=== PATIENT | female | born 1930 | race Caucasian/White ===

== ENCOUNTER → 2017-07-21 | Outpatient (CLI) | payer OTHER | LOC: RAD 11:00 | DX: M47.894 Other spondylosis, thoracic region (principal); M47.896 Other spondylosis, lumbar region; M47.892 Other spondylosis, cervical region; M25.512 Pain in left shoulder; M25.511 Pain in right shoulder ==

== ENCOUNTER → 2017-07-30 | Outpatient (CLI) | payer OTHER ==
[~2017-07-30] VITALS: Ht 160 cm; Wt 48.1 kg
[~2017-07-30] MED LIST: CARVEDILOL12.5 MG PO; CHILDREN'S ASPI81 M1 PO; COREG25 MG PO; COUMADIN 1MG TAB1 M1 PO; COUMADIN 2 MG TA2 M1 PO; HYDROCHLOROTH12.5 M2 PO; HYDROCODONE-AP1 EAC6; NEXIUM40 MG PO; OCUVITE TABLET1 EAC1 PO; SORINE 80 MG TA80 M1 PO; SORINE 80 MG TA80 MG PO; SYNTHROID75 MCG PO; TRAMADOL 50 MG50 MG PO; VITAMIN B-12500 MCG BUCCAL; VITAMIN D2000 UNIT PO; XALATAN2.5 ML
[2017-07-30 13:15] VITALS: BP 175/60
[2017-07-30 14:50] VITALS: BP 162/45
== END ==
LOC: OPONC 06:17
DX: E61.1 Iron deficiency (principal)
CPT/HCPCS: 95000; 95113

== ENCOUNTER → 2017-08-03 | Outpatient (CLI) | payer OTHER ==
[2017-08-03 11:52] VITALS: BP 180/66
[2017-08-03 12:31] VITALS: BP 168/54
== END ==
LOC: OPONC 00:42
DX: E61.1 Iron deficiency (principal)
CPT/HCPCS: 95000

== ENCOUNTER → 2017-08-05 | Outpatient (CLI) | payer OTHER ==
[2017-08-05 10:40] VITALS: BP 181/61
[2017-08-05 11:40] VITALS: BP 183/59
== END ==
LOC: OPONC
DX: E61.1 Iron deficiency (principal)
CPT/HCPCS: 95000

== ENCOUNTER → 2017-08-10 | Outpatient (CLI) | payer OTHER ==
[2017-08-10 12:25] VITALS: BP 198/67
[2017-08-10 12:40] VITALS: BP 190/55
[2017-08-10 13:25] VITALS: BP 197/49
== END ==
LOC: OPONC 00:24
DX: E61.1 Iron deficiency (principal)
CPT/HCPCS: 95000

== ENCOUNTER → 2017-08-12 | Outpatient (CLI) | payer OTHER ==
[2017-08-12 12:20] VITALS: BP 178/60
[2017-08-12 13:20] VITALS: BP 190/70
== END ==
LOC: OPONC 00:39
DX: E61.1 Iron deficiency (principal)
CPT/HCPCS: 95000

== ENCOUNTER → 2017-08-18 | Outpatient (CLI) | payer OTHER ==
[~2017-08-18] VITALS: Ht 160 cm; Wt 48.1 kg
[~2017-08-18] MED LIST changes: +COREG CR40 MG PO; -HYDROCODONE-AP1 EAC6; +HYDROCODONE-AP1 EAC6 PO; +KEFLEX500 MG PO
--- NOTE | ~2017-08-18 | P ---
[facility] [place] [address] PROCEDURE REPORT Name: YUDELKA SWARTZ [id number] Admission: 08/18/17 Attend Phys: Ernesto Vega Discharge: Date of : [birth year] Report #: [id number] THIS REPORT FOR: //name// CC: Ernesto Riddle MD DATE OF SERVICE: 08/18/2017 PROCEDURE PERFORMED: Colonoscopy with polypectomies. HISTORY OF PRESENT ILLNESS: The patient is an 87-year-old female with a history of anemia. EGD was just performed, which was essentially negative. Plan is for colonoscopy. DESCRIPTION OF PROCEDURE: The risks and benefits of the procedure were explained to the patient, those risks including but not limited to bleeding, perforation, the risk of sedation. She understood these risks and gave informed consent. Sedation was given using propofol per anesthesia. Next, a digital rectal exam was initially performed, which was normal. Next, using a standard Fujinon colonoscope, the scope was placed in the patient's anus and advanced under direct vision to the cecum. The overall prep was excellent. The cecum and ileocecal valve were normal in appearance. In the ascending colon, there was an 8 mm sessile polyp. This was removed by snare cautery. A few scattered diverticula were also noted in the ascending colon, otherwise normal. In the transverse colon, a 6 mm sessile polyp was also removed by snare cautery. A few scattered diverticula were noted in the descending colon and sigmoid colon. Also, in the sigmoid colon was an area of mild erythema and colitis. There was no active bleeding. Biopsies were obtained. The rectal mucosa was normal. On retroflexion, no abnormalities were noted. The scope was then withdrawn and the procedure terminated. The patient tolerated the procedure well. IMPRESSION: 1. Two colonic polyps. 2. Scattered diverticulosis. 3. Small area of colitis in the sigmoid colon, no bleeding. 4. Otherwise, normal colonoscopy. RECOMMENDATIONS: 1. Await biopsy results. 2. Consider Hemoccult testing stools times 3. [facility] [address] [place] [address] PROCEDURE REPORT Name: YUDELKA SWARTZ Room #: REG [facility] Kevin#: [id number] Admission: 08/18/17 Attend Phys: Ernesto Vega Discharge: Date of : [birth year]/03[birth year] Report #: [id number] Thank you for allowing me to participate in her care. <ELECTRONICALLY SIGNED> By: Ernesto Phillips MD 08/20/17 0935 1152 1242 Ernesto Phillips MD /nt
--- NOTE | ~2017-08-18 | EKG ---
[address] [place] [address] ELECTROCARDIOGRAM REPORT Name: YUDELKA SWARTZ [id number] Admission: 08/18/17 Attend Phys: Ernesto Vega Discharge: Date of : [birth year]/03/[birth year] Report #: [id number] THIS REPORT FOR: //name// [facility] Test Date: 2017-08-18 Test Time: 09:07:05 Pat Name: YUDELKA SWARTZ Department: Room: Gender: F General Duty Nurse: DANG : 1930 Requested By: Ernesto Phillips Order Number: [id number] MD: Willam Adams Measurements Intervals [place] Rate: 59 P: 0 [place]: 159 QRS: 88 QRSD: 91 T: 33 QT: 523 QTc: 519 Interpretive Statements Sinus rhythm Borderline right axis deviation Consider left ventricular hypertrophy Compared to ECG 06/05/1993 12:52:00 Sinus tachycardia no longer present Poor R-wave progression no longer present ST (T wave) deviation no longer present Electronically Signed On 08-18-2017 11:19:07 CDT by Willam Adams [email or web address] <ELECTRONICALLY SIGNED> By: Willam Adams MD 08/18/17 1119 0907 0907 Willam Adams MD /EPI
--- NOTE | ~2017-08-18 | P ---
[facility] [place] [address] PROCEDURE REPORT Name: YUDELKA SWARTZ [facility] [id number] Admission: 08/18/17 Attend Phys: Ernesto Vega Discharge: Date of : [birth year]/03/[birth year] Report #: [id number] THIS REPORT FOR: //name// CC: Ernesto Riddle MD DATE OF SERVICE: 08/18/2017 PROCEDURE PERFORMED: Upper endoscopy with biopsies. HISTORY OF PRESENT ILLNESS: The patient is an 87-year-old female with a history of anemia. She denies any melanotic stools or bright red blood per rectum. Last colonoscopy was in 2008. She has had weight loss of about 10 pounds over the last 2 years. She does report some nausea at times. She denies any dysphagia. No family history of colon cancer. She is on Coumadin for history of valve replacement. This has been held. Her INR today is 1.1. Plan is for EGD and colonoscopy. PROCEDURE: The risks and benefits of the procedure were explained to the patient, those risks including, but not limited to bleeding, perforation, and the risk of sedation. She understood these risks and gave informed consent. Sedation was given using propofol per anesthesia. Next, using a standard Walk-in App[facility]ment Schedulerinon upper endoscope, the scope was placed in the patient's mouth and advanced under direct vision through the esophagus, stomach and into the second portion of the duodenum. The esophagus was normal throughout. The GE junction was normal. Overall, the gastric mucosa was normal. No ulcers or erosions were noted. The pylorus was normal and patent. The duodenal bulb and first portion were normal. A duodenal diverticulum was noted in the second portion, otherwise normal. Biopsies were obtained to rule out the possibility of celiac sprue because of her history of anemia. The scope was then withdrawn and the procedure terminated. The patient tolerated the procedure well. IMPRESSION: 1. Duodenal diverticulum. 2. Otherwise, normal upper endoscopy. RECOMMENDATIONS: 1. Await biopsy results. 2. We will proceed with colonoscopy next today. [address] [address] PROCEDURE REPORT Name: YUDELKA SWARTZ Room #: REG JASMINE Brown#: [id number] Admission: 08/18/17 Attend Phys: Ernesto Vega Discharge: Date of : [birth year]/03/[birth year] Report #: [id number] Thank you for allowing me to participate in her care. <ELECTRONICALLY SIGNED> By: Ernesto Phillips MD 08/20/17 0935 1149 1224 Ernesto Phillips MD /nt
--- NOTE | ~2017-08-18 | S ---
[facility] [place] [address] SURGICAL PATH RPT PROCEDURE Name: LENORE SWARTZ Room #: REG JASMINE An.#: [id number] Admission: 08/18/17 Date of : [birth year] Discharge: Report #: [id number] Path Case #: [id number] PATHOLOGY REPORT COLLECTION DATE: 08/18/2017 RECEIVED DATE: 08/18/2017 SUBMITTING PHYS: Dr. Ernesto Phillips OTHER PHYS: Dr. Shawn Riddle SPECIMEN(S) RECEIVED: A.Duodenum R/O sprue B.Polyp at ascending colon C.Polyp at transverse colon D.Bx colitis * * * * * * * * * * * * FINAL DIAGNOSIS: A. Small bowel mucosa, duodenum to rule out sprue, endoscopic biopsy: - No diagnostic abnormalities present. B. Polyp, at ascending colon, endoscopic biopsy: - Tubular adenoma. - Negative for high grade dysplasia. C. Polyp, at transverse colon, endoscopic biopsy: - Tubular adenoma. - Negative for high grade dysplasia. D. 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 - Negative for active cryptitis. - Negative for dysplasia or malignancy. COMMENT: Part D: Examination shows fibrotic lamina propria comprised of lymphocytes and plasma cells. The crypts show architectural abnormalities in scattered rare foci. There is no active cryptitis, crypt abscess formation, basal plasmacytosis or surface epithelial inflammation/ulceration identified in any of the biopsy tissues. There are no granulomata, viral inclusions, or parasitic organisms present. Thrombi are not identified within the lamina propria vessels. Overall findings may be suggestive of chronic colitis/resolving ulcerative colitis, chronic diverticulitis, or partially sampled ischemic colitis. Clinical correlation is suggested. (IUV:rlm; 08/19/2017) PATHOLOGIST: Shonna Liriano M.D. REPORT ELECTRONICALLY SIGNED BY: [place] [address] SURGICAL PATH RPT PROCEDURE Name: LENORE SWARTZ Room #: REG [facility]#: [id number] Admission: 08/18/17 Date of : [birth year] Discharge: Report #: [id number] Path Case #: [id number] DATE/TIME: 08/19/2017 15:56 * * * * * * * * * * * * GROSS PATHOLOGY: A. Received in formalin labeled "Lenorekatja Swartz, BX duodenal," are 3 segments of alexis soft tissue measuring 1.2 x 0.3 x 0.4 cm in aggregate dimensions and ranging from 0.4 to 0.4 cm in maximum dimension. The specimen is submitted entirely in cassette A1. B. Received in formalin labeled "Lenore Swartz, polyp at ascending colon," are 4 segments of alexis soft tissue measuring 1.4 x 0.8 x 0.5 cm in aggregate dimensions and ranging from 0.5 to 0.6 cm in maximum dimension. The specimen is submitted entirely in cassette B1. C. Received in formalin labeled "Lenore Keerthi, polyp at transverse colon," is a segment of alexis soft tissue measuring 0.5 cm in maximum dimension. The specimen is submitted entirely in cassette C1. D. Received in formalin labeled "Lenore Swartz, BX colitis," are 3 segments of alexis soft tissue measuring 0.6 x 0.1 x 0.1 cm in aggregate dimensions and ranging from 0.2 to 0.2 cm in maximum dimension. The specimen is submitted entirely in cassette D1. (TSD; 08/18/2017) CLINICAL HISTORY: Pre-OP DX: Hx anemia Post-OP DX: Anemia, colon polyps INITIAL CPT CODE(S): A; 77721 B; 24106 C; 94130 D; 81246 Professional services performed by [facility] at [facility] [address], [place] [address] Technical services performed by [facility] at [address] [place] [address], [address], [place] [address]. [facility] [address] [place] [address] PHONE: [phone] DIRECTOR: Manish Steele M.D. * * * END OF REPORT * * *
[2017-08-18 09:55] LABS: INR 1.1; PROTIME 11.1 Seconds (9.3-11.4)
== END | disposition home or self-care (01) ==
LOC: GI 01:21
PROVIDERS: Specialist
DX: D12.2 Benign neoplasm of ascending colon (principal); D12.3 Benign neoplasm of transverse colon; K52.9 Noninfective gastroenteritis and colitis, unspecified; K57.10 Diverticulosis of small intestine without perforation or abscess without bleeding; I10 Essential (primary) hypertension; K21.9 Gastro-esophageal reflux disease without esophagitis; E03.9 Hypothyroidism, unspecified; Z90.710 Acquired absence of both cervix and uterus; Z95.2 Presence of prosthetic heart valve; Z98.41 Cataract extraction status, right eye; Z98.42 Cataract extraction status, left eye; Z98.890 Other specified postprocedural states; Z91.041 Radiographic dye allergy status; Z88.4 Allergy status to anesthetic agent; Z79.82 Long term (current) use of aspirin; Z79.899 Other long term (current) drug therapy; Z79.01 Long term (current) use of anticoagulants
CPT/HCPCS: 62110

== ENCOUNTER → 2018-12-23 | Outpatient (CLI) | payer OTHER | LOC: RAD 13:50 | DX: N60.01 Solitary cyst of right breast (principal); N60.02 Solitary cyst of left breast ==

== ENCOUNTER → 2018-12-27 | Outpatient (CLI) | payer OTHER ==
[2018-12-27 13:16] LABS: CREATININE 1.3 mg/dL (0.6-1.0)
[2018-12-27 13:37] LABS: ALBUMIN 3.5 g/dL (3.4-5.0); CALCIUM 10.3 mg/dL (8.5-10.1); CREATININE 1.3 mg/dL (0.6-1.0); POTASSIUM 4.3 mmol/L (3.5-5.1)
[2018-12-27 13:49] LABS: INR 1.1
[2018-12-27 13:50] LABS: TOTAL BILIRUBIN 0.4 mg/dL (<0.1-1.0); TOTAL PROTEIN 6.7 g/dL (6.4-8.2)
--- NOTE | 2019-01-02 16:07 | PATH ---
[facility] [address] [place] [address] PATHOLOGY RPT PROCEDURE Name: LENORE SWARTZ Annel Room #: REG JASMINE An.#: [id number] ������������������ Admission: 12/27/18 ������������������ Date of : [birth year]/03/[birth year] Discharge: Report #: [id number] Path Case #: [id number] [facility] Accession Number: [id number] . 01 Material submitted: . LEFT BREAST MASS . 01 Clinical history: . Left breast mass . 02 Diagnosis: Breast, left breast mass, needle core biopsy: - INVASIVE MODERATELY DIFFERENTIATED DUCTAL ADENOCARCINOMA, MACK GRADE II/III MEASURING 1.6 CM IN A SINGLE CORE IN CONTIGUOUS LENGTH. 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 02 Comment: Specimen type: Left breast mass Tumor site: Not specified Tumor quantitation: 1.6 cm Histologic type: Invasive ductal carcinoma Histologic grade: Mack grade II Tubules, nuclei and mitoses: 3, 2 and 2 respectively LVSI: Not identified Microcalcifications: Not identified Markers: ER, DE, HER2/MARLEY, and Ki67 Block: A1 . Co-review: Dr. Huong Mullen. . Findings are telephoned to Miss Selina Rain at approximately 1:20 p.m. on 12/28/18. . 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 02 Addendum: . Special studies report received from [facility], [address] [place] [address], [address], [place], [address], on case [id number], labeled with their number [id number], dated 12/30/2018. . Breast/Prognostic Marker Analysis . Specimen Site: Lt Breast, mass, Breast cancer. Specimen ID #: [id number] . ER (Estrogen Receptor) [place] [address] PATHOLOGY RPT PROCEDURE Name: LENORE SWARTZ [facility] [id number] ������������������ Admission: 12/27/18 ������������������ Date of : [birth year]03/[birth year] Discharge: Report #: [id number] Path Case #: [id number] Absent/Negative Percent: 0.00 Analysis: Manual . DE (Progesterone Receptor) Absent/Negative Percent: 0.00 Analysis: Manual . HER2 Equivocal Score: 2+ Analysis: Manual . Ki-67 High Proliferation Percent: 25.00% Analysis: Manual . Time to Fixation (Cold Ischemic Time): Immediate Duration of Fixation: Not Provided Type of Fixative: 10% Neutral Buffered Formalin . at [employer]. Chano Murphy MD Surgical Pathologist . Methodology The HER2 Receptor protein expression is analyzed using the [employer] HER2 rabbit monoclonal antibody (clone [id number]). This assay is used for diagnostic determination of the HER2 protein over-expression in paraffin embedded, formalin fixed breast cancer tissue on the [employer]. The specimen is processed using a polymer detection system. The membrane staining of the tumor is determined either by manual score or image analysis. This antibody is intended for in vitro diagnostic use. The score is reported as per package insert; 0, 1+, 2+, and 3+. This test is used for clinical purposes. . A rabbit monoclonal antibody (clone SP1) that recognized the Estrogen Receptor is used to perform immunohistochemistry on routinely fixed (formalin) paraffin embedded tissue on the [employer] Benchmark. The specimen is processed using a polymer detection system. The percentage of stained tumor nuclei is determined either manually or by image analysis. This test is intended for in vitro diagnostic use. This test is used for clinical purposes. . A rabbit monoclonal antibody (clone 1E2) that recognized the Progesterone [address] [address] PATHOLOGY RPT PROCEDURE Name: MAXIMELENORE Annel Room #: REG [facility].#: [id number] ������������������ Admission: 12/27/18 ������������������ Date of : [birth year]03/[birth year] Discharge: Report #: [id number] Path Case #: [id number] Receptor is used to perform immunohistochemistry on routinely fixed (formalin) paraffin embedded tissue on the [employer] Benchmark. The specimen is processed using a polymer detection system. The percentage of stained tumor nuclei is determined either manually or by image analysis. This test is intended for in vitro diagnostic use. This test is used for clinical purposes. . A rabbit monoclonal antibody (clone 30-9) that recognized Ki67 is used to perform immunohistochemistry on routinely fixed (formalin) paraffin embedded tissue on the [employer] Benchmark. The specimen is processed using a polymer detection system. The percentage of stained tumor nuclei is determined either manually or by image analysis. This test is intended for in vitro diagnostic use. This test is used for clinical purposes. . Intended Use: This antibody is intended for in vitro diagnostic (IVD) use. HER2 (4B5) is a rabbit monoclonal antibody intended for the semi-quantitative detection of HER2 antigen in sections of formalin-fixed, paraffin embedded normal and neoplastic tissue. . This antibody is intended for in vitro diagnostic (IVD) use. Estrogen Receptor (ER) (SP1) is a rabbit monoclonal antibody (IgG) that is intended for the qualitative detection of estrogen receptor (ER) antigen in sections of formalin-fixed, paraffin-embedded tissue. ER is a rabbit monoclonal antibody that recognizes human estrogen receptor alpha. . This antibody is intended for in vitro diagnostic (IVD) use. Progesterone Receptor (DE) (1E2) is a rabbit monoclonal antibody (IgG) that is intended for the qualitative detection of progesterone receptor (DE) antigen in sections of formalin fixed, paraffin embedded tissue. DE is a rabbit monoclonal antibody that recognizes the A and B forms of the human progesterone receptor. . This antibody is intended for in vitro diagnostic (IVD) use. Ki-67 (30-9) is a rabbit monoclonal antibody (IgG) directed against C-terminal portion of Ki-67 antigen. Staining for Ki-67 can be used to aid in assessing the proliferative activity of normal and neoplastic tissue. Ki-67 is a nuclear protein expressed in proliferating cells. During the cell cycle, the Ki-67 antigen is present in the G1, S, G2 and M phase but is absent in the G0 (quiescent phase). . . Disclaimer: This Test was performed by [employer]. at [address] [place] [address], [address]. . [facility] [employer] is a business unit of [employer]. a wholly-owned subsidiary of [facility] [employer] of [address] [address] PATHOLOGY RPT PROCEDURE Name: LENORE SWARTZ Room #: REG [facility] M.R.#: [id number] ������������������ Admission: 12/27/18 ������������������ Date of : [birth year]/03/[birth year] Discharge: Report #: [id number] Path Case #: [id number] [employer]. . This assay has not been validated on decalcified tissues. Results should be interpreted with caution if this specimen was decalcified given the likelihood of false negativity on decalcified specimens. . Any image(s) that accompany this report is/are a employee representative image(s) only and should not be used to render a diagnosis. . This interpretation is contingent on the specimen and the clinical information received. . For any special tests/stains performed, known positive cells or tissues are tested with each marker and examined to ensure positivity. Positive and negative internal controls, if present, react appropriately. . This analysis is an adjunct to the evaluation of the referring physician and does not represent a final diagnosis. . The immunohistochemistry tests performed at [employer]. were validated on tissue fixed in 10% neutral buffered formalin. The performance characteristics of the tests performed on tissue processed in other fixatives is not known. . HER2 testing at [employer] is performed in compliance with the 2018 updated ASCO/CAP Clinical Practice Guideline Focused Update. If the result is EQUIVOCAL (2+), it must be confirmed by an alternative assay such as FISH or Dual JAZMYNE. REF: Ghanshyam AC, VERITO Coppola et al: Human Epidermal Growth Factor Receptor 2 Testing in Breast Cancer: ASCO/CAP Clinical Practice Guideline Focused Update. J Clin Oncol 36:2869-7060, 2018. . HER2 and ER/DE ASCO/CAP guidelines require fixation in neutral buffered formalin for a minimum of 6 and a maximum of 72 hours. Fixation times less than 6 hours may not adequately preserve cell proteins. Fixation times longer than 72 hours may cause excess cross-linking of proteins reducing the antigen available for staining. Either scenario can cause reduced staining; hence false negative results are possible and should be considered for these situations if the HER2 IHC score is less than 3+ or ER or DE is negative (no staining or <1% positive). It is recommended that specimens fixed longer than 72 hours with HER2 IHC scores less than 3+ be confirmed by HER2 FISH or Dual JAZMYNE. The time from biopsy/excision to fixation in formalin (cold ischemic time) must be less than 1 hour. Time to fixation (cold ischemic time) greater than 1 hour should be interpreted with caution. HER2 testing, mainly HER2 by FISH, is particularly vulnerable since excessive cold ischemic time results in preferential loss of HER2 probe signals that may lead to false negative results. . [address] [address] PATHOLOGY RPT PROCEDURE Name: LENORE SWARTZ Room #: REG [facility] Kevin#: [id number] ������������������ Admission: 12/27/18 ������������������ Date of : [birth year]/03/[birth year] Discharge: Report #: [id number] Path Case #: [id number] SCORE STAINING PATTERN IN TUMOR CELLS INTERPRETATION RESULTS 0 No staining observed or incomplete, faint membrane staining in less than or equal to 10% of tumor cells. Negative 1+ Incomplete, faint membrane staining in greater than 10% of tumor cells. Negative 2+ Incomplete and/or weak/moderate circumferential membrane staining in greater than 10% of the invasive tumor cells or complete, circumferential, intense alternative assay staining in less than or equal to 10% of invasive tumor cells. Equivocal* *Must be confirmed by alternative assay (IHC/FISH/Dual JAZMYNE) 3+ Intense, complete membrane staining in greater than 10% of tumor cells. Positive . A complete copy of the report is on file. . Professional and Technical services performed by [employer]. at [address], [address] [place] [address]. . ([facility] 01/02/2019) . [place]/01/02/2019 Addendum Electronically Signed by Shonna Liriano MD, Pathologist . 02 Electronically signed: . Shonna Liriano MD, Pathologist NPI- [id number] . 01 Gross description: . Received in formalin labeled "Lenore Swartz, left breast 7:00 6cm," are multiple needle cores of yellow-veloz fibrofatty tissue measuring 2.3 x 0.5 x 0.2 cm in aggregate dimensions. The tissue is submitted in its entirety in cassette A1 through A3. The cold ischemic time is less than 1 minute. The total formalin fixation time is 8 hours and 50 minutes. (TSD; 12/27/2018) TOB/TOB . 02 Pathologist provided ICD-10: C50.912 . 02 CPT . [address]508 [address] [address] PATHOLOGY RPT PROCEDURE Name: LENORE SWARTZ Room #: AQUILINO Brown#: [id number] ������������������ Admission: 12/27/18 ������������������ Date of : [birth year]03/[birth year] Discharge: Report #: [id number] Path Case #: [id number] Specimen Comment: A courtesy copy of this report has been sent to Specimen Comment: [phone], . Specimen Comment: Report sent to / DR REYNA Specimen Comment: A duplicate report has been generated due to demographic updates. Performed at: [address] [facility], [place], [place] [id number] MD Shilo Aguilar MD Phone: [phone] Performed at: [address] [facility] [id number] MD Shonna Liriano MD Phone: [phone]
== END | disposition home or self-care (01) ==
LOC: LABMALL 12:24 → ULTRA 12:24
PROVIDERS: Internal Medicine
DX: C50.912 Malignant neoplasm of unspecified site of left female breast (principal); Z98.890 Other specified postprocedural states; Z91.041 Radiographic dye allergy status; Z88.8 Allergy status to other drugs, medicaments and biological substances; Z79.82 Long term (current) use of aspirin; Z79.899 Other long term (current) drug therapy